=== PATIENT | female | born 1965 | race Caucasian/White ===

== ENCOUNTER → 2018-03-23 | Outpatient (CLI) | payer BC, OTHER ==
[~2018-03-23] MED LIST: ACETAMINOPHEN325 M1; ADVIL100 M2 PO; LUTERA1 EACH PO; MICROGESTIN PO; SENNA-S TABLET1 EACH PO; VICODIN 5-5001 EACH; ZOFRAN ODT PO
== END ==
LOC: ULTRA 09:22
DX: M25.811 Other specified joint disorders, right shoulder (principal)

== ENCOUNTER → 2018-04-03 | Outpatient (CLI) | payer BC, OTHER | LOC: MRI 08:58 | DX: D17.21 Benign lipomatous neoplasm of skin and subcutaneous tissue of right arm (principal); R22.31 Localized swelling, mass and lump, right upper limb ==

== ENCOUNTER 2018-04-25 05:29 | Day surgery (SDC) | payer BC, OTHER ==
[~2018-04-25] VITALS: Ht 165.1 cm; Wt 57.2 kg
--- NOTE | ~2018-04-25 | PATH ---
[facility] [address] [place] [address] PATHOLOGY RPT PROCEDURE Name: CRISTA PARKER Room #: DEP [facility] [place].#: [id number] Admission: 04/25/18 Date of : 63 Discharge: 04/25/18 Report #: [id number] Path Case #: [id number] [facility] Accession Number: [id number] . 01 Material submitted: . RIGHT SHOULDER MASS . 01 Clinical history: . Right shoulder mass . 02 Diagnosis: Mature adipose tissue, right shoulder mass, excision: - Compatible with a lipoma associated with congestion and areas of fat necrosis. (IUV:tala; 04/26/2018) QMS/04/26/2018 . 02 Electronically signed: . Briseida Oliva MD, Pathologist NPI- [id number] . 01 Gross description: . The specimen is received in formalin, labeled "Crista Parker, right shoulder mass" and consists of a multilobulated and partially encased segment of yellow-orange adipose tissue measuring 7.4 x 5.3 x 2.0 cm. Sectioning reveals focal red-pink hemorrhage and no nodules or mass lesions. [employer] sections are submitted in A1-A3. (SDY; 04/25/2018) SYU/SYU . 02 Pathologist provided ICD-10: D17.79 . 02 CPT . 860804 Performed at: [address], [place] [id number] MD Russell Liriano MD Phone: [phone] Performed at: [address] [id number] MD Briseida Oliva MD Phone: [phone]
[~2018-04-25 05:29] MED LIST changes: +MULTIVITAMINS1 EAC7 PO; +VITAMIN D1000 UNI1 PO
[2018-04-25 06:39] VITALS: BP 99/63
[2018-04-25 06:39] LABS: HEMATOCRIT 41.2 % (37.0-47.0); HEMOGLOBIN 13.9 gm/dL (12.0-15.0)
[2018-04-25] MEDS ORDERED: TRAMADOL 50 MG50 MG PO (10:27)
[2018-04-25 11:02] VITALS: BP 99/63
== END 2018-04-25 11:00 | disposition home or self-care (01) ==
LOC: OR 05:29 → TBA 05:29 → OR 11:00
PROVIDERS: Surgery
DX: D17.21 Benign lipomatous neoplasm of skin and subcutaneous tissue of right arm (principal); Z90.49 Acquired absence of other specified parts of digestive tract; Z98.890 Other specified postprocedural states
CPT/HCPCS: 50010; 50101; 50386; 50403; 52287; 54118; 56526; 56527; 62110; 62900; 70005